=== PATIENT | female | born 1980 | race African-American/Black ===

== ENCOUNTER 2018-02-24 19:46 | Inpatient (IN) | payer BC, MEDICAID ==
[~2018-02-24] VITALS: Ht 165.1 cm; Wt 147.4 kg
[2018-02-24] MEDS ORDERED: KETOROLAC 30MG/ML VIAL IV STA (22:26)
[2018-02-24] MEDS ORDERED: ONDANSETRON HCL 4MG/2ML INJ IV STA (22:26)
[2018-02-24] MEDS ORDERED: SODIUM CHLORIDE 0.9% 1,000 ML IV ONE (22:26)
[2018-02-24] MEDS ORDERED: METRONIDAZOLE 500 MG PREMIX 100 ML IV ONE (22:30)
[2018-02-24] MEDS ORDERED: PIPERACILLIN/TAZ 3.375G PREMIX 50 ML IV ONE (22:30)
[2018-02-24] MEDS ORDERED: MORPHINE SULFATE 10 MG/ML CPJ IV ONE (22:30)
[2018-02-24 23:09] LABS: CLARITY URINE CLOUDY (CLEAR); COLOR URINE DARK YELLOW (YELLOW); KETONES URINE 3+ (NEGATIVE); LEUKOCYTE ESTERASE URINE NEGATIVE (NEGATIVE); NITRITE URINE NEGATIVE (NEGATIVE); OCCULT BLOOD URINE 3+ (NEGATIVE); PROTEIN URINE 1+ (NEGATIVE); SPECIFIC GRAVITY URINE 1.069 (1.005-1.030)
[2018-02-24 23:13] LABS: INR 1.1; PROTHROMBIN TIME 11.4 sec (9.1-11.1)
[2018-02-24 23:20] LABS: CHLORIDE 101 mEq/L (98-107)
[2018-02-24 23:22] LABS: HCG SCREEN NEGATIVE
[2018-02-24 23:24] LABS: ETHANOL BLOOD < 10 mg/dL
[2018-02-25 00:47] LABS: HEMATOCRIT. 34.7 % (36.0-48.0); HEMOGLOBIN. 11.5 g/dL (12.0-16.0); MEAN CORPUSCULAR HEMOGLOBIN 32.7 pg (28.0-32.0); MEAN CORPUSCULAR VOLUME 98.3 fL (81.0-99.0); MEAN PLATELET VOLUME 8.7 fl (7.4-10.4); PLATELET 235 x1000/uL (130-400); RED BLOOD CELL COUNT 3.53 mill/uL (4.2-5.4); RED CELL DISTRIBUTION WIDTH 14.1 % (11.6-14.6)
[2018-02-25 01:28] LABS: PLATELET ESTIMATE NORMAL
[2018-02-25 05:55] VITALS: BP 121/83
[2018-02-25 08:00] VITALS: BP 125/79
[2018-02-25] MEDS ORDERED: ACETAMINOPHEN 325MG TABLET PO PRN (08:00)
[2018-02-25] MEDS ORDERED: ACETAMINOPHEN 650MG SUPP PR PRN (08:00)
[2018-02-25] MEDS ORDERED: DOCUSATE SODIUM 100MG CAPSULE PO PRN (08:00)
[2018-02-25] MEDS ORDERED: NA PHOS,M-B/NA PHOS,DI-BA ENEMA 118ML PR PRN (08:00)
[2018-02-25] MEDS ORDERED: CLONIDINE 0.1MG TABLET PO PRN (08:00)
[2018-02-25] MEDS ORDERED: MAGNESIUM/ALUMINUM HYDROXIDE/SIMETHICONE 30ML UDC PO PRN (08:00)
[2018-02-25] MEDS ORDERED: ONDANSETRON HCL 4MG/2ML INJ IV PRN (08:00)
[2018-02-25] MEDS ORDERED: ACETAMINOPHEN 650MG/20.3ML UDC GT PRN (08:00)
[2018-02-25] MEDS ORDERED: IPRATROPIUM/ALBUTEROL 0.5-3(2.5)MG/3ML NEB INH PRN (08:00)
[2018-02-25] MEDS ORDERED: GUAIFENESIN 200MG/10ML SUGAR FREE UDC PO PRN (08:00)
[2018-02-25] MEDS ORDERED: ENOXAPARIN 40MG/0.4ML SYR SUBCUT SCH (08:00)
[2018-02-25 08:30] VITALS: BP 125/79
[2018-02-25] MEDS: ENOXAPARIN 40MG/0.4ML SYR SUBCUT SCH ×2 (09:00→21:00)
[2018-02-25] MEDS: HYDROCODONE/ACETAMINOPHEN 5/325MG TABLET PO PRN ×2 (11:33→16:44)
[2018-02-25] MEDS: METRONIDAZOLE 500 MG PREMIX 100 ML IV SCH ×3 (11:35→21:48)
[2018-02-25 12:00] VITALS: BP 134/63
[2018-02-25] MEDS: CEFTRIAXONE 1 G PREMIX 50 ML IV SCH (13:01)
[2018-02-25 13:41] LABS: HEMATOCRIT. 34.3 % (36.0-48.0); HEMOGLOBIN. 11.6 g/dL (12.0-16.0); MEAN CORPUSCULAR HEMOGLOBIN 33.1 pg (28.0-32.0); MEAN PLATELET VOLUME 8.4 fl (7.4-10.4); PLATELET 244 x1000/uL (130-400); RED CELL DISTRIBUTION WIDTH 13.8 % (11.6-14.6)
[2018-02-25 14:11] LABS: CHLORIDE 105 mEq/L (98-107)
[2018-02-25 14:25] LABS: PLATELET ESTIMATE NORMAL
[2018-02-25] MEDS: SODIUM CHLORIDE 0.9% INJ 3ML FLUSH IVF SCH ×2 (14:28→21:49)
[2018-02-25 16:00] VITALS: BP 115/65
[2018-02-25] MEDS: POTASSIUM CHLORIDE 20MEQ TABLET SR PO PRN (16:03)
[2018-02-25 19:53] LABS: UCG SCREEN NEGATIVE
[2018-02-25 19:54] LABS: CLARITY URINE CLOUDY (CLEAR); COLOR URINE DARK YELLOW (YELLOW); KETONES URINE TRACE (NEGATIVE); LEUKOCYTE ESTERASE URINE TRACE (NEGATIVE); NITRITE URINE POSITIVE (NEGATIVE); OCCULT BLOOD URINE 2+ (NEGATIVE); PH URINE 5.5 (4.5-8.0); PROTEIN URINE 2+ (NEGATIVE); SPECIFIC GRAVITY URINE 1.036 (1.005-1.030)
[2018-02-25 20:22] LABS: *AMPHETAMINES SCREEN URINE NEGATIVE (NEGATIVE); *BARBITURATES SCREEN URINE NEGATIVE (NEGATIVE); *BENZODIAZEPINES SCREEN URINE NEGATIVE (NEGATIVE); METHADONE URINE SCREEN NEGATIVE (NEGATIVE)
[2018-02-25 20:23] LABS: *COCAINE SCREEN URINE PRESUMTIVE POSITIVE (NEGATIVE); PHENCYCLIDINE URINE SCREEN NEGATIVE (NEGATIVE)
[2018-02-25 20:24] LABS: CANNABINOID URINE SCREEN PRESUMTIVE POSITIVE (NEGATIVE); OPIATES URINE SCREEN PRESUMTIVE POSITIVE (NEGATIVE)
[2018-02-25] MEDS: HYDROMORPHONE HCL/PF 2MG/ML CPJ IV PRN (21:45)
[2018-02-26] VITALS: BP 101/59
[2018-02-26] MEDS ORDERED: NAPR220C15 PO (00:46)
[2018-02-26] MEDS: METRONIDAZOLE 500 MG PREMIX 100 ML IV SCH ×3 (05:33→21:06)
[2018-02-26] MEDS: SODIUM CHLORIDE 0.9% INJ 3ML FLUSH IVF SCH ×3 (05:34→21:06)
[2018-02-26 08:00] VITALS: BP 108/70
[2018-02-26] MEDS: CEFTRIAXONE 1 G PREMIX 50 ML IV SCH (08:06)
[2018-02-26] MEDS: HYDROMORPHONE HCL/PF 2MG/ML CPJ IV PRN ×3 (08:07→20:00)
[2018-02-26] MEDS: ENOXAPARIN 40MG/0.4ML SYR SUBCUT SCH ×2 (09:00→20:01)
[2018-02-26 12:10] VITALS: BP 104/62
[2018-02-26 16:24] VITALS: BP 108/65
[2018-02-26 18:16] LABS: BASOPHILS % 0.1 % (0.0-2.0); EOSINOPHILS % 1.5 % (0.0-5.0); HEMATOCRIT. 34.8 % (36.0-48.0); HEMOGLOBIN. 11.5 g/dL (12.0-16.0); LYMPHOCYTES % 7.2 % (20.0-50.0); MEAN CORPUSCULAR HEMOGLOBIN 32.4 pg (28.0-32.0); MEAN CORPUSCULAR VOLUME 97.9 fL (81.0-99.0); MEAN PLATELET VOLUME 8.6 fl (7.4-10.4); MONOCYTES % 5.9 % (2.0-8.0); NEUTROPHILS % 85.3 % (40.0-76.0); PLATELET 264 x1000/uL (130-400); RED BLOOD CELL COUNT 3.56 mill/uL (4.2-5.4); RED CELL DISTRIBUTION WIDTH 13.7 % (11.6-14.6)
[2018-02-26 18:25] LABS: CHLORIDE 103 mEq/L (98-107)
[2018-02-26 18:34] LABS: LDL CHOLESTEROL 76 mg/dL (5-100)
[2018-02-26 18:35] LABS: HDL CHOLESTEROL 38 mg/dL (40-59)
[2018-02-26 20:00] VITALS: BP 122/78
[2018-02-27] VITALS: BP 132/75
[2018-02-27] MEDS: HYDROMORPHONE HCL/PF 2MG/ML CPJ IV PRN ×4 (02:01→21:36)
[2018-02-27 04:00] VITALS: BP 99/56
[2018-02-27] MEDS: SODIUM CHLORIDE 0.9% INJ 3ML FLUSH IVF SCH ×3 (05:40→21:20)
[2018-02-27] MEDS: METRONIDAZOLE 500 MG PREMIX 100 ML IV SCH ×3 (05:40→21:19)
[2018-02-27 08:00] VITALS: BP 107/58
[2018-02-27] MEDS: ENOXAPARIN 40MG/0.4ML SYR SUBCUT SCH ×2 (08:42→21:00)
[2018-02-27] MEDS: CEFTRIAXONE 1 G PREMIX 50 ML IV SCH (09:00)
[2018-02-27 12:00] VITALS: BP 109/66
[2018-02-27 16:00] VITALS: BP 122/69
[2018-02-27 19:37] LABS: BASOPHILS % 0.1 % (0.0-2.0); EOSINOPHILS % 1.9 % (0.0-5.0); HEMATOCRIT. 34.3 % (36.0-48.0); HEMOGLOBIN. 11.4 g/dL (12.0-16.0); LYMPHOCYTES % 10.6 % (20.0-50.0); MEAN CORPUSCULAR HEMOGLOBIN 32.6 pg (28.0-32.0); MEAN CORPUSCULAR VOLUME 98.2 fL (81.0-99.0); MEAN PLATELET VOLUME 8.4 fl (7.4-10.4); MONOCYTES % 10.1 % (2.0-8.0); NEUTROPHILS % 77.3 % (40.0-76.0); PLATELET 287 x1000/uL (130-400); RED BLOOD CELL COUNT 3.49 mill/uL (4.2-5.4)
[2018-02-27 19:43] LABS: CHLORIDE 103 mEq/L (98-107)
[2018-02-27 20:00] VITALS: BP 145/94
[2018-02-27] MEDS: POTASSIUM CHLORIDE 20MEQ TABLET SR PO PRN (21:18)
[2018-02-28] VITALS: BP 105/60
[2018-02-28 04:00] VITALS: BP 145/80
[2018-02-28] MEDS: SODIUM CHLORIDE 0.9% INJ 3ML FLUSH IVF SCH (05:21)
[2018-02-28] MEDS: METRONIDAZOLE 500 MG PREMIX 100 ML IV SCH (05:30)
[2018-02-28] MEDS: HYDROMORPHONE HCL/PF 2MG/ML CPJ IV PRN (06:13)
[2018-02-28 08:00] VITALS: BP 119/77
[2018-02-28] MEDS: ENOXAPARIN 40MG/0.4ML SYR SUBCUT SCH (09:00)
[2018-02-28] MEDS: CEFTRIAXONE 1 G PREMIX 50 ML IV SCH (09:23)
[2018-02-28] MEDS ORDERED: POTASSIUM CHLORIDE 20MEQ TABLET SR PO PRN (09:45)
[2018-02-28] MEDS ORDERED: LEVO500T2 MT (09:54)
[2018-02-28] MEDS ORDERED: METR500T PO (09:54)
[2018-03-03 09:06] LABS: SACCHAROMYCES CEREVISIAE IGG <20.0 Units (0.0-24.9); SACCHAROMYCES CEREVISIAE IGM <20.0 Units (0.0-24.9)
== END 2018-02-28 15:00 | disposition home or self-care (01) | DRG 872 ==
LOC: ER 19:46 → EDBEDREQTM 02-25 02:00 → EDBEDREQ 02-25 02:00 → EDBEDREQDT 02-25 02:00 → ENRESERV 02-25 04:45 → 6WST 02-25 05:57
PROVIDERS: ADMIT Family Medicine; ATTEND Family Medicine
DX: A41.9 Sepsis, unspecified organism (principal); N39.0 Urinary tract infection, site not specified; Z68.43 Body mass index [BMI] 50.0-59.9, adult; K52.9 Noninfective gastroenteritis and colitis, unspecified; E86.0 Dehydration; E87.6 Hypokalemia; D64.9 Anemia, unspecified; J45.909 Unspecified asthma, uncomplicated; E66.01 Morbid (severe) obesity due to excess calories; H66.90 Otitis media, unspecified, unspecified ear; F17.200 Nicotine dependence, unspecified, uncomplicated; F14.10 Cocaine abuse, uncomplicated
CPT/HCPCS: 36415; 74176; 80061; 80305; 81025; 83605; 84484; 84703; 86256; 86671; 87015; 87045; 87427; 87449; 87493; 96365; 96375; 99285; C1893; G0482; J0696; J1170; J1650; J1885; J2270; J2405; J2543; J3490; J7030; J7050